=== PATIENT | female | born 1965 | race Caucasian/White ===

== ENCOUNTER → 2017-11-13 | Outpatient (CLI) | payer OTHER ==
[2017-11-13 10:16] LABS: ALT 36 U/L (9-52); AST 20 U/L (14-36); Alkaline Phosphatase 62 U/L (38-126); Anion Gap 7 mmol/L; Blood Urea Nitrogen 11 mg/dL (7-17); Calcium 9.4 mg/dL (8.4-10.2); Carbon Dioxide 28 mmol/L (22-30); Chloride 104 mmol/L (98-107); Glucose 108 mg/dL (74-99); Non-African American GFR(MDRD) >60 (>60 ml/min/1.73 sqM); Potassium 4.2 mmol/L (3.5-5.1); Sodium 139 mmol/L (137-145); Total Bilirubin 0.3 mg/dL (0.2-1.3); Total Protein 6.7 g/dL (6.3-8.2)
== END | disposition home or self-care (01) ==
LOC: LABWHC1 09:02
PROVIDERS: ATTEND Internal Medicine Interventional Cardiology
DX: R00.2 Palpitations (principal)
CPT/HCPCS: 36415; 80053; 84443

== ENCOUNTER → 2017-12-09 | Outpatient (CLI) | payer OTHER ==
--- NOTE | 2017-12-11 07:14 | MM ---
Reason for exam: screening (asymptomatic). Last mammogram was performed 2 years and 1 month ago. Physical Findings: A clinical breast exam by your physician is recommended on an annual basis and results should be correlated with mammographic findings. MG Screening Mammo w CAD Bilateral CC and MLO view(s) were taken. Prior study comparison: October 31, 2015, bilateral MG screening mammo w CAD. July 17, 2014, bilateral MG screening mammo w CAD. The breast tissue is heterogeneously dense. This may lower the sensitivity of mammography. Increasing nodularity in the left breast middle position. ASSESSMENT: Incomplete: need additional imaging evaluation, BI-RAD 0 RECOMMENDATION: Special view mammogram of the left breast. If lesion persists on supplemental views, image directed ultrasound is recommended. [facility] will attempt to contact patient to return for supplemental views and ultrasound if indicated.
== END | disposition home or self-care (01) ==
LOC: RADMAMWWP 11:36
PROVIDERS: ATTEND Family Medicine
DX: Z12.31 Encounter for screening mammogram for malignant neoplasm of breast (principal)
CPT/HCPCS: 77067

== ENCOUNTER 2017-12-11 08:45 | Day surgery (SDC) | payer OTHER ==
[2017-12-09 10:47] VITALS: BMI 32.8
[~2017-12-11 08:45] MED LIST: LACTATED RINGERS 1,000 ML IV SCH; ONDANSETRON 4 MG/2 ML VIAL IVP PRN
[2017-12-11 09:12] VITALS: RESP 16; TEMP 98.5
[2017-12-11] MEDS ORDERED: PROPOFOL 10 MG/ML 20 ML VIAL IV ONE (09:46)
--- NOTE | 2017-12-11 10:13 | P.PCN ---
Date of Procedure: 12/11/17 Procedure(s) Performed: BRIEF HISTORY: Patient is a 52-year-old pleasant white female, scheduled for an elective colonoscopy as a part of screening for colon neoplasia. PROCEDURE PERFORMED: Colonoscopy. PREOPERATIVE DIAGNOSIS: Screening for colon cancer. IV sedation per Anesthesia. PROCEDURE: After informed consent was obtained, the patient, was brought into the endoscopy unit. IV sedation was administered by Anesthesia under continuous monitoring. Digital rectal examination was normal. Initially the Olympus CF- 160 flexible video colonoscope was then inserted in the rectum, gradually advanced into the cecum without any difficulty. Careful examination was performed as the scope was gradually being withdrawn. Ileocecal valve and the appendiceal orifice were visualized and appeared normal. Prep was excellent. Mucosa of the cecum, ascending colon, transverse colon, descending colon, sigmoid colon, and rectum appeared normal. Scattered sigmoidal necrosis seen. Retroflexion was performed in the rectum and no lesions were seen. The patient tolerated the procedure well. IMPRESSION: Normal-appearing colon from rectum to cecum With no evidence of colorectal neoplasia. Scattered sigmoid diverticulosis. RECOMMENDATIONS: Findings of this examination were discussed with the patient as well as her family. She was advised to have a repeat screening colonoscopy in 10 years..
[2017-12-11 10:35] VITALS: PULSE 66
[2017-12-11 11:03] VITALS: BP 116/71
== END 2017-12-11 11:21 | disposition home or self-care (01) ==
LOC: ORWHC2ENDO 08:45
PROVIDERS: ATTEND Internal Medicine Gastroenterology
DX: Z12.11 Encounter for screening for malignant neoplasm of colon (principal); K57.30 Diverticulosis of large intestine without perforation or abscess without bleeding; K55.049 Acute infarction of large intestine, extent unspecified; F17.210 Nicotine dependence, cigarettes, uncomplicated; Z79.1 Long term (current) use of non-steroidal anti-inflammatories (NSAID)
CPT/HCPCS: 81025; J2704; G0121

== ENCOUNTER → 2017-12-15 | Outpatient (CLI) | payer OTHER ==
--- NOTE | 2017-12-15 11:32 | MM ---
Reason for exam: additional evaluation requested from abnormal screening. Last mammogram was performed less than 1 month ago. Physical Findings: Nurse Summary: 0.5cm nodule in the left breast at 12/3 o'clock, questionable cluster at 3 o'clock (nurse kp). MG Work Up Mamm w CAD LT Spot compression CC, spot compression MLO, and LM view(s) were taken of the left breast. Prior study comparison: December 09, 2017, bilateral MG screening mammo w CAD. October 31, 2015, bilateral MG screening mammo w CAD. Nodularity in the left breast persists. Ultrasound is recommended. These results were verbally communicated with the patient and result sheet given to the patient on 12/15/17. ASSESSMENT: Incomplete: need additional imaging evaluation, BI-RAD 0 RECOMMENDATION: Ultrasound of the left breast. Manage patient on a clinical basis.
--- NOTE | 2017-12-15 11:33 | USB ---
Reason for exam: additional evaluation requested from abnormal screening. US Breast Workup LT Left breast ultrasound includes all four quadrants, the retroareolar region and axilla. Finding demonstrates no cystic or solid lesion seen. These results were verbally communicated with the patient and result sheet given to the patient on 12/15/17. ASSESSMENT: Negative, BI-RAD 1 RECOMMENDATION: Return to routine screening mammogram schedule for both breasts. Manage patient on a clinical basis.
== END | disposition home or self-care (01) ==
LOC: RADMAMWWP 10:19
PROVIDERS: ATTEND Family Medicine
DX: R92.8 Other abnormal and inconclusive findings on diagnostic imaging of breast (principal)
CPT/HCPCS: 77065

== ENCOUNTER → 2018-06-29 | Outpatient (CLI) | payer OTHER ==
--- NOTE | 2018-06-29 15:49 | US ---
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 Lump posterior/medial right knee for years, g etting larger Isoechoic/hypoechoic area right posterior/medial knee at area of lump = 7.1 x 3.9 x 6.0cm, possible l ipoma IMPRESSION: 1. Isoechoic structure within the posterior knee. Lipoma could be considered. Liposarcoma is not excl uded. Recommend MRI with contrast for additional evaluation.
== END | disposition home or self-care (01) ==
LOC: RADUSWWP 10:29
PROVIDERS: ATTEND Orthopaedic Surgery
DX: D17.9 Benign lipomatous neoplasm, unspecified (principal); M17.12 Unilateral primary osteoarthritis, left knee

== ENCOUNTER → 2019-04-12 | Outpatient (CLI) | payer OTHER ==
[2019-04-12 15:27] LABS: HGB 14.8 gm/dL (11.4-16.0); MCH 28.5 pg (25.0-35.0); MCHC 32.2 g/dL (31.0-37.0); MCV 88.5 fL (80.0-100.0); Mean Platelet Volume 8.1; Platelet Count 245 k/uL (150-450); RDW 13.7 % (11.5-15.5)
[2019-04-12 15:33] LABS: INR 0.9 (<1.2); Partial Thromboplastin Time 23.3 sec (22.0-30.0); Prothrombin Time 9.6 sec (9.0-12.0)
[2019-04-12 15:47] LABS: ALT 35 U/L (9-52); AST 29 U/L (14-36); Albumin 4.7 g/dL (3.5-5.0); Alkaline Phosphatase 80 U/L (38-126); Anion Gap 2 mmol/L; Blood Urea Nitrogen 13 mg/dL (7-17); Calcium 10.1 mg/dL (8.4-10.2); Carbon Dioxide 27 mmol/L (22-30); Chloride 106 mmol/L (98-107); Glucose 89 mg/dL (74-99); Potassium 4.5 mmol/L (3.5-5.1); Sodium 135 mmol/L (137-145); Total Bilirubin 0.3 mg/dL (0.2-1.3); Total Protein 7.7 g/dL (6.3-8.2)
[2019-04-12 16:08] LABS: Appearance,Urine Clear (Clear); Bilirubin,Urine Negative (Negative); Blood,Urine Negative (Negative); Color,Urine Yellow; Glucose,Urine (UA) Negative (Negative); Ketones,Urine Negative (Negative); Leukocyte Esterase,Urine Negative (Negative); Nitrite,Urine Negative (Negative); PH, Urine 5.5 (5.0-8.0); Protein,Urine Negative (Negative); Specific Gravity,Urine 1.024 (1.001-1.035); Urobilinogen,Urine <2.0 mg/dL (<2.0)
== END | disposition home or self-care (01) ==
LOC: LABPAT 14:14
PROVIDERS: ATTEND Orthopaedic Surgery
DX: Z01.818 Encounter for other preprocedural examination (principal); Z01.812 Encounter for preprocedural laboratory examination
CPT/HCPCS: 80053; 81003; 85027; 85610; 85730; 87070; 93005

== ENCOUNTER 2019-04-20 09:31 | Inpatient (IN) | payer OTHER ==
[~2019-04-20 09:31] MED LIST changes: +ACETAMINOPHEN TAB 500 MG TAB PO ONE; +DEXAMETHASONE SOD PHOSPHATE 10 MG/ML 1 ML VIAL IV ONE; +HYDROmorphone 0.5 MG/0.5 ML SYRINGE IVP PRN; +LIDOCAINE 1% 20 ML VIAL (10MG/ML) FOR IV START INTRADERMA PRN; +MELOXICAM 7.5 MG TAB PO ONE; +ONDANSETRON 4 MG/2 ML VIAL IVP ONE; +TRANEXAMIC ACID 1,000 MG in SODIUM CHLORIDE 0.9% 100 ML IVPB ONE; +ceFAZolin IN SWFI 2 GM/20 ML SYRINGE IVP ONE
[2019-04-20] MEDS ORDERED: MIDAZOLAM (PF) 2 MG/2 ML VIAL IVP ONE (10:49)
[2019-04-20] MEDS ORDERED: fentaNYL (PF) 50 MCG/ML 2 ML AMP IVP ONE (10:49)
[2019-04-20] MEDS ORDERED: MIDAZOLAM 2 MG/2 ML VIAL ONE (12:04)
[2019-04-20] MEDS ORDERED: SODIUM CHLORIDE 0.9% 100 ML BAG ONE (12:04)
[2019-04-20] MEDS ORDERED: fentaNYL (PF) 50 MCG/ML 2 ML AMP ONE (12:04)
[2019-04-20] MEDS ORDERED: PROPOFOL 10 MG/ML 20 ML VIAL IV ONE (12:04)
[2019-04-20] MEDS ORDERED: TRANEXAMIC ACID 1,000 MG/10 ML VIAL ONE (12:04)
[2019-04-20] MEDS ORDERED: MAGNESIUM HYDROXIDE 2,400 MG/10 ML CUP PO PRN (12:33)
[2019-04-20] MEDS ORDERED: ONDANSETRON 4 MG/2 ML VIAL IVP PRN (12:33)
[2019-04-20] MEDS ORDERED: HYDROmorphone 0.5 MG/0.5 ML SYRINGE IVP PRN ×2 (12:33)
[2019-04-20] MEDS ORDERED: hydrOXYzine PAMOATE 25 MG CAP PO PRN (12:33)
[2019-04-20] MEDS ORDERED: NA PHOS,M-B/NA PHOS,DI-BA 133 ML ENEMA RECTAL PRN (12:33)
[2019-04-20] MEDS ORDERED: HYDROmorphone 1 MG/ML 1 ML SYRINGE IVP PRN (12:33)
[2019-04-20] MEDS ORDERED: HYDROcodone/APAP 5-325MG 1 EACH TAB PO PRN (12:33)
[2019-04-20] MEDS ORDERED: BISACODYL 10 MG SUPP RECTAL PRN (12:33)
[2019-04-20] MEDS ORDERED: NALOXONE 0.4 MG/ML 1 ML VIAL IV PRN (12:33)
[2019-04-20] MEDS ORDERED: LACTATED RINGERS 1,000 ML IV ONE (12:35)
[2019-04-20] MEDS: ROPIVACAINE 246.25 MG, EPINEPHrine 0.5 MG, KETOROLAC 30 MG, WATER FOR INJECTION,STERILE... MISCELLANE ONE ×8 (13:01→13:25)
[2019-04-20] MEDS ORDERED: ceFAZolin 3,000 MG in SODIUM CHLORIDE 0.9% IRRIGATIO 3,000 ML IRRIGATION ONE (13:01)
[2019-04-20 14:50] VITALS: RESP 16
[2019-04-20] MEDS ORDERED: ROPIVACAINE 1,100 MG, SODIUM CHLORIDE 0.9% 500 ML 330 ML MISCELLANE PRN ×2 (14:59)
--- NOTE | 2019-04-20 15:08 | XR ---
EXAMINATION TYPE: XR knee limited LT DATE OF EXAM: 04/20/2019 CLINICAL HISTORY: Postoperative evaluation Two views of the left knee are submitted. Identified are changes of total knee arthroplasty with fem oral and tibial components appearing well seated. Postsurgical soft tissue changes are noted. Align ment is anatomic.
[2019-04-20 17:23] VITALS: BMI 34.0
[2019-04-20] MEDS: KETOROLAC 30 MG/ML 1 ML VIAL IVP SCH ×4 (17:52→23:17)
[2019-04-20] MEDS: NICOTINE 21MG/24HR PATCH TRANSDERM SCH (17:56)
[2019-04-20] MEDS: HYDROcodone/APAP 5-325MG 1 EACH TAB PO PRN (19:16)
[2019-04-20] MEDS: LACTATED RINGERS 1,000 ML IV SCH ×2 (19:18→20:12)
[2019-04-20] MEDS: ceFAZolin IN SWFI 2 GM/20 ML SYRINGE IVP SCH (20:13)
[2019-04-20] MEDS ORDERED: SENNOSIDES-DOCUSATE SODIUM 1 EACH TAB PO SCH (21:00)
[2019-04-20] MEDS ORDERED: TEMAZEPAM 15 MG CAP PO PRN (22:00)
[2019-04-21] MEDS: HYDROcodone/APAP 5-325MG 1 EACH TAB PO PRN ×2 (00:46→09:14)
[2019-04-21 01:44] VITALS: PULSE 83
[2019-04-21] MEDS: KETOROLAC 30 MG/ML 1 ML VIAL IVP SCH (04:51)
[2019-04-21] MEDS: ceFAZolin IN SWFI 2 GM/20 ML SYRINGE IVP SCH (04:51)
[2019-04-21 07:43] VITALS: BP 103/64; TEMP 98.4
--- NOTE | 2019-04-21 08:10 | P.OP ---
Date of Procedure: 04/20/19 Procedure(s) Performed: PREOPERATIVE DIAGNOSIS: Left knee severe osteoarthritis with genu varum POSTOPERATIVE DIAGNOSIS: Left knee severe osteoarthritis with genu varum OPERATION: Left knee cemented total replacement arthroplasty. ANESTHESIA: Spinal ESTIMATED BLOOD LOSS: 100 ml. BIG DATA DEVELOPER: Alpa Oscar PA-C (assistance with: patient positioning, retraction, exposure, hemostasis, leg positioning, implantation, irrigation, closure, dressing) COMPLICATIONS: None apparent. COMPONENTS IMPLANTED: Persona system from [employer] INDICATIONS: Carrie is a 54 year old female with a history of left knee osteoarthritis. Conservative treatment has been tried and has been unsuccessful in controlling symptoms adequately. The operation of knee replacement has been discussed at length in the office, as well as potential risks and complications. These are inclusive of, but not limited to: bleeding, infection, scarring, discomfort, blood vessel and nerve damage, need for further surgery, failure to relieve symptoms, persistence, recurrence, or worsening of problems, loosening, dislocation, wear, blood clot, pulmonary embolism, , gait dysfunction, stiffness, and other risks as discussed in the office. The patient elects to proceed and the consent form has been signed. PROCEDURE: The patient was taken to the operating room and positioned on the operating room table in the supine position. Anesthesia was initiated. Care was taken to make sure that all pressure points were adequately padded. The operative lower extremity was prepped and draped in the usual aseptic fashion using ChloraPrep. Ioban drape was used for the case and the patient received intravenous antibiotics within one hour of the incision. A pneumotourniquet and leg kim were used for the case. The limb was exsanguinated with an Esmarch bandage and the tourniquet was inflated to 350 mmHg. Time-out was called confirming the patient's identity, side, procedure and administration of antibiotics and tranexamic acid, 1 g IV. The incision was then created midline directly over the knee, carried down through skin and into the subcutaneous tissues and down to fascia. Full thickness subcutaneous medial flap was developed. Medial parapatellar arthrotomy was performed and the interior of the knee was inspected. There was end-stage osteoarthritis of the knee with a mild to moderate genu varum type deformity. The fat pad was excised and proximal medial release on the tibia was completed using meticulous dissection and a curved osteotome. The anterior cruciate ligament was taken down. Note was made of significant attrition of the anterior and significant degenerative appearance of the posterior cruciate ligaments. The exposure was excellent. The knee was flexed 90 degrees and the patella was everted. A spot was chosen on the femur approximately 1 cm anterior to the posterior cruciate ligament insertion and an intramedullary hole was created within the femur. The intramedullary guide was then set to 5 degrees of valgus. The distal cutting block was attached and pinned into position. An appropriate amount of distal femoral resection was set. The oscillating saw was then used to make the distal femoral cut. This cut was confirmed to be flat with the flat end of an osteotome. The retractors were placed around the tibia and the tibial surface was addressed. The angle and depth of resection was adjusted using an extramedullary cutting guide. The guide had a built-in 3 degree posterior slope cut. Once the cutting guide was adjusted appropriately and in line with the axis of the tibia and confirmed to be in good position in relation to the second metatarsal and transmalleolar axis, the tibial cut was then created with protection of the posterior neurovascular structures and the collateral ligaments. The tibial cut surface was removed and sized. Assessment of the extension gap was performed using spacer blocks. Medial releases were performed as necessary to achieve a rectangular space in extension. Femoral sizing was then accomplished using anterior referencing. Care was taken to analyze the posterior condyles for signs of deficiency or severe wear, and adjustments to the guide were made, as appropriate. 3 degree external rotation pins were placed. The cutting jig for the femur was applied to these pins. The planned cuts were further analyzed prior to performing them with the oscillating saw. No femoral notching was produced. Bone fragments were removed and the cut surfaces were finished, as necessary, with a reciprocating saw. Spacer blocks were then used to confirm that the flexion and extension gaps were equal. Soft tissue releases and adjustment of the tibial and/or femoral cuts were made, as necessary, until the gaps were equal. This included release of the posterior cruciate ligament, which was tight in this patient. The femur was then further finished for a posterior cruciate ligament substituting component. Patellar resurfacing was performed using a reamer. The size of the required patellar component was estimated and the patellar surface was then reamed down to a residual thickness which would recreate the [place] thickness with the component. The exact placement of the patellar component was adjusted for position based on preoperative x-rays and intraoperative findings. Prior to placing trial components, anesthetic solution consisting of ropivicaine with epinephrine, ketorolac, and clonidine was injected carefully and meth odically in a grid pattern using aspiration technique into the soft tissue around the knee circumferentially, starting with the deeper tissues first and progressing to fascia, and then finally the skin/subcutaneous tissue. Particular care was taken when injecting the posterior capsule. The trial components were inserted. The tibial tray was allowed to self center and the patella was noted to track very well. The position of the tibial component was marked and the tibia was then finished for a stemmed tibial component. Cement was mixed on the back table and applied to the final components. Trial components were removed and the cut surfaces of the bone were pulse lavaged thoroughly and dried. Cement was then applied to the tibial surface and pressurized into the surface using finger pressurization technique. The tibial component was then applied and excess cement was removed after it was impacted securely and noted to be flush with the cut surface. In similar fashion, the cement was applied to the cut femoral surface, pressurized in using finger pressurization and the component was impacted into place. Excess cement was removed. The polyethylene spacer was then implanted and locked into position. The patellar component was then applied in similar technique and a patellar clamp was used to hold the patella in place as the cement hardened. Once the cement had fully hardened, the knee was reinspected. Any other cement extrusion was removed and final kinematic testing showed range of motion from 0 to 130 degrees with excellent stability, both medially and laterally and appropriate alignment of the leg. Patellar tracking was excellent. The knee was then thoroughly pulse lavaged with normal saline. The tourniquet was deflated and hemostasis was obtained with electrocautery and IV tranexamic acid, 1 g given prior to inflation of the tourniquet and another gram given at the time of closure. Closure was with #2 Ethibond in the fascia and supplemented with #2 Quill, 2-0 Vicryl suture was used for the subcutaneous tissues and 3-0 Quill for the skin. Dermabond/Steri-Strips were then applied. A lightly compressive dressing was applied using Webril and an Zachery wrap. The patient was then transferred to stretcher and taken to the recovery room in stable condition. Sponge and needle counts were correct.
--- NOTE | 2019-04-21 08:43 | P.DS ---
Providers Date of admission: 04/20/19 09:31 Attending physician: Jigar Waters Consults: 04/20/19 12:33 Consult Physician Routine Consulting Provider: Dillon Heredia Consult Reason/Comments: Medical management Do you want consulting provider notified?: Yes Primary care physician: Jasson Jaimes - Discharge Diagnosis(es) (1) Primary localized osteoarthritis of left knee Current Visit: Yes Status: Acute (2) Status post total left knee replacement Current Visit: Yes Status: Acute Hospital Course: This is a 54-year-old female who was last seen with complaint of continued left knee pain. The patient has a known history of degenerative arthritis of the left knee and presents to discuss surgical options. After discussion and consideration the patient elects to proceed with total left knee arthroplasty. The patient is seen preoperatively by her primary care physician and cleared for surgery. The patient is admitted to [facility] for total left knee arthroplasty. The procedures performed without complication or sequelae. He is doing well postoperatively. Vital signs are stable at discharge. Labs are stable at discharge. the patient is ambulating well with walker with minimal assistance. The patient is discharged to home on postop day #1 pending medical clearance. Please see orders and refer to the med rec for accurate list of medications. Plan - Discharge Summary Discharge Rx Participant: Yes New Discharge Prescriptions: New Aspirin [Adult Low Dose Aspirin EC] 81 mg PO DAILY #1 tablet. HYDROcodone/APAP 5-325MG [[place] 5-325] 1 - 2 each PO Q4-6H PRN #50 tab PRN Reason: Pain Sennosides-Docusate Sodium [Senokot-S] 1 tab PO BID #60 tablet Rivaroxaban [Xarelto] 10 mg PO DAILY #5 tab No Action Ibuprofen 800 mg PO Q8H PRN PRN Reason: Pain Multivitamin [Multivitamins Adult Gummies] 1 tab PO DAILY [phone] [Excedrin] 1 tab PO ONCE PRN PRN Reason: Headache Discharge Medication List Ibuprofen 800 mg PO Q8H PRN 12/09/17 [History] [id number]-[id number] [phone] [Excedrin] 1 tab PO ONCE PRN 04/14/19 [History] Multivitamin [Multivitamins Adult Gummies] 1 tab PO DAILY 04/14/19 [History] Aspirin [Adult Low Dose Aspirin EC] 81 mg PO DAILY #1 tablet. 04/20/19 [Rx] HYDROcodone/APAP 5-325MG [[place] 5-325] 1 - 2 each PO Q4-6H PRN #50 tab 04/20/19 [Rx] Rivaroxaban [Xarelto] 10 mg PO DAILY #5 tab 04/20/19 [Rx] Sennosides-Docusate Sodium [Senokot-S] 1 tab PO BID #60 tablet 04/20/19 [Rx] Follow up Appointment(s)/Referral(s): Alpa Oscar, PAC [PHYSICIAN DEHYDRATOR] - 2 Weeks Ambulatory/Diagnostic Orders: Continuous Passive Motion (CPM) Machine [DME.AMB1] Time Frame: 3 Weeks, Fa cility: Yomaira Latif, Location: Case Management Activity/Diet/Wound Care/Special Instructions: May bear wt as tolerated w walker. May shower if no drainage from incision. CPM 5-6h daily. Discharge Disposition: HOME WITH HOME HEALTH SERVICES
[2019-04-21] MEDS ORDERED: RIVAROXABAN 10 MG TAB PO SCH (09:00)
[2019-04-21] MEDS ORDERED: MELOXICAM 7.5 MG TAB PO SCH (09:00)
[2019-04-21 09:13] LABS: Basophils % (A) 0 %; Eosinophils # (A) 0.1 k/uL (0-0.7); Eosinophils % (A) 0 %; HCT 35.2 % (34.0-46.0); HGB 11.2 gm/dL (11.4-16.0); Lymphocytes % (A) 12 %; MCH 27.6 pg (25.0-35.0); MCHC 31.9 g/dL (31.0-37.0); MCV 86.5 fL (80.0-100.0); Mean Platelet Volume 7.9; Monocytes # (A) 0.6 k/uL (0-1.0); Monocytes % (A) 4 %; Neutrophils # (A) 13.3 k/uL (1.3-7.7); Neutrophils % (A) 83 %; Platelet Count 207 k/uL (150-450); RBC 4.06 m/uL (3.80-5.40); RDW 13.8 % (11.5-15.5)
[2019-04-21] MEDS: NICOTINE 21MG/24HR PATCH TRANSDERM SCH (09:14)
[2019-04-21] MEDS ORDERED: BISMUTH SUBSALICYLATE 4,192 MG/240 ML BOTTLE PO PRN (09:29)
--- NOTE | 2019-04-21 11:54 | P.PN ---
Progress Note - Text Anesthesia POD 1. Patient is status post left TKR under spinal anesthesia with a left adductor canal catheter placed for postoperative pain relief. With ropivacaine 0.2% running at 8 cc's per hour, the patient's VAS is (1, 4). Catheter site is clean dry and intact.
--- NOTE | 2019-04-21 21:05 | CONS ---
CONSULTATION DATE OF CONSULTATION: 04/21/2019 REASON FOR CONSULTATION: Medical management requested by Dr. Waters. CONSULTATION: This is a 54-year-old patient of Dr. Jaimes. Chronic stable medical conditions include osteoarthritis of the shoulder, irritable bowel syndrome, seborrheic dermatitis. The patient has undergone left total knee arthroplasty. Pain is controlled. No nausea, vomiting, did tolerate a diet. Did work with therapy. Doing better today. Has been out of bed. REVIEW OF SYSTEMS: CONSTITUTIONAL: None. HEENT none. RESPIRATORY: None. CARDIOVASCULAR: None. GASTROINTESTINAL: None. GENITOURINARY: Occasional incontinence. DERMATOLOGICAL: Seborrheic dermatitis. As above. PSYCHIATRY: None. NEUROLOGICAL: None. MUSCULOSKELETAL: Arthritic pain in the right shoulder. PAST MEDICAL HISTORY: Right shoulder osteoarthritis, irritable bowel syndrome. Seborrheic dermatitis, urine incontinence. PAST SURGICAL HISTORY: Right knee replacement, lump removed behind the right knee, tonsillectomy. SOCIAL HISTORY: Smokes a pack a day. Lives with a boyfriend. Works as a quality head at a factory. No alcohol. FAMILY HISTORY: DVT. HOME MEDICATIONS: Full list not available. ALLERGIES: NICKEL. PHYSICAL EXAMINATION: VITAL SIGNS: Temperature 98.4. heart rate 83, respirations 16, blood pressure 103/64, pulse ox 97% on room air. GENERAL APPEARANCE: Average, well-built. BMI 34.2, sitting up awake. EYES: Pupils equal. Conjunctivae normal. HEENT: External appearance of nose and ears normal. Oral cavity normal. NECK JVD not raised. Mass not palpable. RESPIRATORY: Effort normal. LUNGS: Fair air entry. CARDIOVASCULAR: First and second sounds no edema. ABDOMEN: Soft, nontender. Liver and spleen not palpable. LYMPHATIC: No lymph nodes palpable in the neck and axilla. PSYCHIATRY: Alert and oriented x3. Mood and affect normal. NEUROLOGICAL: Pupils equal. Cranial nerves grossly intact. Power and sensation grossly intact. MUSCULOSKELETAL: Incision on the left knee healing well. INVESTIGATIONS: White count 16, hemoglobin 11.2. The patient's hemoglobin was 14.8 on 04/12/2019. ASSESSMENT: 1. Left total knee arthroplasty. 2. Acute postoperative blood loss anemia expected from surgery. 3. Leukocytosis likely reactive from surgery. No clinical evidence of infection. 4. Osteoarthritis of the right shoulder. 5. Irritable bowel syndrome. 6. Seborrheic dermatitis. 7. Obesity; BMI 34.2. 8. Chronic nicotine dependence. The patient is a cigarette smoker. PLAN: Care was discussed with the patient. He has been put on Xarelto for DVT prophylaxis. The patient is also being put on iron supplementation. The patient should follow up with Dr. Jaimes upon discharge. Thank you Dr. Waters. Smoking cessation counseling: This was discussed with the patient. Nicotine patch has been given. More than 3 minutes was spent on this aspect of the case. Copy to Dr. Jaimes. ELSY / HAWKN: [id number] /
== END 2019-04-21 13:48 | disposition home health service (06) | DRG 470 ==
LOC: 2ORMAIN 09:31 → EDSTATUS 13:00 → 4SSUR 14:44
PROVIDERS: ADMIT Orthopaedic Surgery; ATTEND Orthopaedic Surgery
PROC: 0SRD0J9 Replacement of Left Knee Joint with Synthetic Substitute, Cemented, Open Approach (ICD-10-PCS; principal; 2019-04-20 13:00)
DX: M17.12 Unilateral primary osteoarthritis, left knee (principal); D62 Acute posthemorrhagic anemia; D72.829 Elevated white blood cell count, unspecified; E66.9 Obesity, unspecified; F17.210 Nicotine dependence, cigarettes, uncomplicated; K58.9 Irritable bowel syndrome, unspecified; L21.9 Seborrheic dermatitis, unspecified; M19.011 Primary osteoarthritis, right shoulder; M21.169 Varus deformity, not elsewhere classified, unspecified knee; Z68.34 Body mass index [BMI] 34.0-34.9, adult; Z96.651 Presence of right artificial knee joint; Z79.899 Other long term (current) drug therapy; Z82.49 Family history of ischemic heart disease and other diseases of the circulatory system; Z80.1 Family history of malignant neoplasm of trachea, bronchus and lung; Z82.0 Family history of epilepsy and other diseases of the nervous system
CPT/HCPCS: 81025; 85025; 88300

== ENCOUNTER → 2022-08-30 | Outpatient (CLI) | payer BC ==
--- NOTE | 2022-08-30 10:59 | XR ---
Right hip. HISTORY: Pain. COMPARISON: None. TECHNIQUE: 2 views the right hip were obtained. FINDINGS: There is mild narrowing of the right hip joint with hypertrophic spurring of the femoral head indicat ing moderate degenerative arthritis. There is no fracture or dislocation. No focal intraosseous abnor malities are seen. IMPRESSION: 1. No acute trauma including no fracture or dislocation. 2. Moderate degenerative changes of hip joint.
[2022-08-30 16:32] LABS: Basophils # (A) 0.02 X 10*3/uL (0.00-0.10); Basophils % (A) 0.3 %; Eosinophils # (A) 0.07 X 10*3/uL (0.04-0.35); Eosinophils % (A) 0.9 %; HCT 43.8 % (37.2-46.3); HGB 14.4 g/dL (12.0-15.0); Immature Grans, Automated 0.3 %; Lymphocytes # (A) 2.17 X 10*3/uL (0.90-5.00); Lymphocytes % (A) 27.3 %; MCH 28.6 pg (27.0-32.0); MCHC 32.9 g/dL (32.0-37.0); MCV 86.9 fL (80.0-97.0); Mean Platelet Volume 12.1 fL (9.5-12.2); Monocytes # (A) 0.52 X 10*3/uL (0.20-1.00); Monocytes % (A) 6.5 %; NRBC Per 100 WBC 0 /100 WBCS (0.0-0.0); Neutrophils # (A) 5.16 X 10*3/uL (1.80-7.70); Neutrophils % (A) 64.7 %; Platelet Count 271 X 10*3/uL (140-440); RBC 5.04 X 10*6/uL (4.10-5.20); RDW 13.4 % (11.5-14.5); WBC 7.96 X 10*3/uL (4.50-10.00)
[2022-08-30 17:02] LABS: ALT 22 U/L (8-44); AST 20 U/L (13-35); African American GFR (CKD) 90.3 (60.0-200.0); Albumin 4.4 g/dL (3.8-4.9); Albumin/Globulin Ratio 1.74 (1.60-3.17); Alkaline Phosphatase 115 U/L (41-126); Calcium 9.7 mg/dL (8.7-10.3); Carbon Dioxide 28.5 mmol/L (20.0-27.5); Chloride 106 mmol/L (96-109); Chol/HDL Ratio 4.17 Ratio; Globulin 2.5 g/dL (1.6-3.3); Glucose 97 mg/dL (70-110); LDL Cholesterol,Calculated 141.9 mg/dL (0.0-131.0); Non-African American GFR(CKD) 77.9 (60.0-200.0); Potassium 4.7 mmol/L (3.5-5.5); Sodium 142 mmol/L (135-145); Total Protein 6.9 g/dL (6.2-8.2)
== END | disposition home or self-care (01) ==
LOC: LABWHC1 10:22
PROVIDERS: ATTEND Family Medicine
DX: Z00.00 Encounter for general adult medical examination without abnormal findings (principal); R53.83 Other fatigue; M25.551 Pain in right hip; M16.11 Unilateral primary osteoarthritis, right hip; N64.4 Mastodynia
CPT/HCPCS: 36415; 73502; 80053; 80061; 84439; 84443; 85025

== ENCOUNTER → 2022-09-01 | Outpatient (CLI) | payer BC ==
--- NOTE | 2022-09-02 20:37 | MM ---
Reason for Exam: Screening (asymptomatic). Last mammogram was performed 4 year(s) and 9 month(s) ago. Patient History: Menarche at age 11. First Full-Term at age 20. Postmenopausal. Risk Values: Xochitl 5 year model risk: 1.0%. NCI Lifetime model risk: 6.4%. Prior Study Comparison: 10/31/2015 Bilateral Screening Mammogram, [facility]. 12/09/2017 Bilateral Screening Mammogram, [facility]. 12/15/2017 Left Diagnostic Mammogram, [facility]. Tissue Density: There are scattered fibroglandular densities. Findings: Analyzed By CAD. There is chronic bilateral nodularity. This becomes more apparent on the 3-D images. No significant change from prior exams. Overall Assessment: Benign, BI-RAD 2 Management: Screening Mammogram of both breasts in 1 year. 1. Patient should continue monthly self breast exams. 2. A clinical breast exam by your physician is recommended on an annual basis. 3. This exam should not preclude additional follow-up of suspicious palpable abnormalities. Electronically signed and approved by: Juan Briscoe M.D. Radiologist
== END | disposition home or self-care (01) ==
LOC: RADMAMWWP 16:14
PROVIDERS: ATTEND Family Medicine
DX: Z12.31 Encounter for screening mammogram for malignant neoplasm of breast (principal)
CPT/HCPCS: 77063; 77067

== ENCOUNTER 2023-06-08 15:19 | Inpatient (IN) | payer BC ==
[2023-06-08] MEDS ORDERED: ASPIRIN 81 MG PO STA (15:53)
[2023-06-08] MEDS ORDERED: NITROGLYCERIN OINT 1 INCH/GM PACKET TOPICAL STA (15:53)
--- NOTE | 2023-06-08 16:03 | ED ---
General Adult HPI - General Chief complaint: Chest Pain Stated complaint: shoulder pain, chest pain Time Seen by Provider: 06/08/23 15:30 Source: patient, RN notes reviewed, old records reviewed Limitations: no limitations - History of Present Illness Initial comments: This is a 58-year-old female presents emergency Department complaining of chest pain and left shoulder pain. Patient states the shoulder pain is been ongoing for about 5 days. Patient states hurts to move but she can move through the full range of motion. She states that this morning in addition to his shoulder pain she started having central chest pain that lasted about 2 hours. Patient states he was very achy in nature and it made her very nauseated. Patient denied abdominal pain patient denied any vomiting or diarrhea. Patient denies any fever chills or cough. Patient states the pain did not seem to be associated to her left shoulder pain. Patient states she works very repetitive job and she thinks she may have injured the shoulder and chest pain is something new as of this morning. Patient states she is a smoker she has a strong family history of heart disease. - Related Data Home Medications Medication Instructions Recorded Confirmed Ibuprofen [Motrin] 800 mg PO TID-W/MEALS PRN 06/08/23 06/08/23 Allergies Allergy/AdvReac Type Severity Reaction Status Date / Time nickel Allergy Rash/Hives/ Verified 06/08/23 16:31 itching gluten AdvReac Nausea & Verified 06/08/23 16:31 Vomiting & Diarrhea lactase [From Dairy Aid] AdvReac Nausea & Verified 06/08/23 16:31 Vomiting & Diarrhea Review of Systems ROS Statement: Those systems with pertinent positive or pertinent negative responses have been documented in the HPI. ROS Other: All systems not noted in ROS Statement are negative. Past Medical History Past Medical History: Osteoarthritis (OA), Skin Disorder Additional Past Medical History / Comment(s): hx migraines, hx heart murmer, palpitations with stress, IBS, seborrheic dermatitis, premature age spots History of Any Multi-Drug Resistant Organisms: None Reported Past Surgical History: Joint Replacement, Tonsillectomy Additional Past Surgical History / Comment(s): rt knee replacement Past Anesthesia/Blood Transfusion Reactions: No Reported Reaction Past Psychological History: Anxiety Smoking Status: Current every day smoker Past Alcohol Use History: None Reported Past Drug Use History: None Reported - Past Family History Mother Family Medical History: Cancer, Deep Vein Thrombosis (DVT) General Exam - General Exam Comments Initial Comments: GENERAL: Patient is well-developed and well-nourished. Patient is nontoxic and well- hydrated and is in mild distress. ENT: Neck is soft and supple. No significant lymphadenopathy is noted. Oropharynx is clear. Moist mucous membranes. Neck has full range of motion without eliciting any pain. EYES: The sclera were anicteric and conjunctiva were pink and moist. Extraocular movements were intact and pupils were equal round and reactive to light. Eyelids were unremarkable. PULMONARY: Unlabored respirations. Good breath sounds bilaterally. No audible rales rhonchi or wheezing was noted. CARDIOVASCULAR: There is a regular rate and rhythm without any murmurs gallops or rubs. No reproducible chest pain ABDOMEN: Soft and nontender with normal bowel sounds. SKIN: Skin is clear with no lesions or rashes and otherwise unremarkable. NEUROLOGIC: Patient is alert and oriented x3. Cranial nerves II through XII are grossly intact. Motor and sensory are also intact. Normal speech, volume and content. Symmetrical smile. MUSCULOSKELETAL: Normal extremities with adequate strength and full range of motion. There is no palpable area of tenderness on the shoulder but patient has pain she states internally with any movement of the shoulder but she is able to go through full range of motion. No lower extremity swelling or edema. No calf tenderness. LYMPHATICS: No significant lymphadenopathy is noted PSYCHIATRIC: Normal psychiatric evaluation. Limitations: no limitations Course Vital Signs 06/08/23 06/08/23 15:27 18:00 Temperature 98.0 F Pulse Rate 86 72 Respiratory 19 18 Rate Blood Pressure 103/66 132/75 O2 Sat by Pulse 97 99 Oximetry Medical Decision Making - Medical Decision Making EKG was interpreted by myself shows a sinus rhythm at 85 bpm ME interval 276 1 QT Interval 33 QTC Is 425 per Patient's EKG Shows No ST Segment Elevation or Depression Was pt. sent in by a medical professional or institution (, PA, ROUTE AIDE, urgent care, hospital, or intermediate...) When possible be specific @ -No Did you speak to anyone other than the patient for history (EMS, parent, family, police, friend...)? What history was obtained from this source @ -No Did you review nursing and triage notes (agree or disagree)? Why? @ -I reviewed and agree with nursing and triage notes Were old charts reviewed (outside hosp., previous admission, EMS record, old EKG, old radiological studies, urgent care reports/EKG's, intermediate records)? Report findings @ -No old charts were reviewed Differential Diagnosis (chest pain, altered mental status, abdominal pain women, abdominal pain men, vaginal bleeding, weakness, fever, dyspnea, syncope, headache, dizziness, GI bleed, back pain, seizure, CVA, palpatations, mental health, musculoskeletal)? @ -Differential Chest Pain: Stable Angina, Unstable Angina, STEMI, NSTEMI Aortic Dissection, Pneumothorax, Musculoskeletal, Esophageal Spasm GERD, Cholecystitis, Pancreatitis, Zoster, this is not meant to be an all-inclusive list. EKG interpreted by me (3pts min.). @ -As above X-rays interpreted by me (1pt min.). @ -EKG shows no acute abnormality CT interpreted by me (1pt min.). @ -None done U/S interpreted by me (1pt. min.). @ -None done What testing was considered but not performed or refused? (CT, X-rays, U/S, labs)? Why? @ -None What meds were considered but not given or refused? Why? @ -None Did you discuss the management of the patient with other professionals (professionals i.e. , PA, ROUTE AIDE, lab, RT, psych nurse, social work assistant, carbon printer, teacher, uniform patrol police officer, case aide)? Give summary @ -I spoke with the [facility] hospitalist and they agreed to admit the patient Was smoking cessation discussed for >3mins.? @ -No Was critical care preformed (if so, how long)? @ -No Were there social determinants of health that impacted care today? How? (Homelessness, low income, unemployed, alcoholism, drug addiction, transportatio n, low edu. Level, literacy, decrease access to med. care, correction, rehab)? @ -No Was there de-escalation of care discussed even if they declined (Discuss DNR or withdrawal of care, Hospice)? DNR status @ -No What co-morbidities impacted this encounter? (DM, HTN, Smoking, COPD, CAD, Cancer, CVA, ARF, Chemo, Hep., AIDS, mental health diagnosis, sleep apnea, morbid obesity)? @ -None Was patient admitted / discharged? Hospital course, mention meds given and route, prescriptions, significant lab abnormalities, going to OR and other pertinent info. @ -Patient had chest pain throughout her ED course it was feeling better than when she came in initially. I spoke with the [facility] hospitalist after all the labs came back negative x-ray negative. They agreed to admit the patient admitted the patient I consulted cardiology Undiagnosed new problem with uncertain prognosis? @ -No Drug Therapy requiring intensive monitoring for toxicity (Heparin, Nitro, Insulin, Cardizem)? @ -No Were any procedures done? @ -No Diagnosis/symptom? @ -Chest pain Acute, or Chronic, or Acute on Chronic? @ -Acute Uncomplicated (without systemic symptoms) or Complicated (systemic symptoms)? @ -Complicated Side effects of treatment? @ -No Exacerbation, Progression, or Severe Exacerbation? @ -No Poses a threat to life or bodily function? How? (Chest pain, [place], [place], pneumonia, PE, COPD, DKA, ARF, appy, cholecystitis, CVA, Diverticulitis, Homicidal, Suic idal, threat to staff... and all critical care pts) @ -Yes this could lead to poor perfusion and end organ dysfunction - Lab Data Result diagrams: 06/08/23 16:00 06/08/23 16:00 Lab Results 06/08/23 06/08/23 06/08/23 Range/Units 16:00 16:00 16:00 WBC 8.9 (3.8-10.6) k/uL RBC 4.49 (3.80-5.40) m/uL Hgb 13.2 (11.4-16.0) gm/dL Hct 39.6 (34.0-46.0) % MCV 88.2 (80.0-100.0) fL MCH 29.4 (25.0-35.0) pg MCHC 33.3 (31.0-37.0) g/dL RDW 13.4 (11.5-15.5) % Plt Count 235 (150-450) k/uL MPV 8.6 Neutrophils % 61 % Lymphocytes % 32 % Monocytes % 5 % Eosinophils % 1 % Basophils % 0 % Neutrophils # 5.4 (1.3-7.7) k/uL Lymphocytes # 2.8 (1.0-4.8) k/uL Monocytes # 0.5 (0-1.0) k/uL Eosinophils # 0.1 (0-0.7) k/uL Basophils # 0.0 (0-0.2) k/uL PT 10.3 (9.0-12.0) sec INR 1.0 (<1.2) APTT 23.4 (22.0-30.0) sec Sodium 138 (137-145) mmol/L Potassium 4.1 (3.5-5.1) mmol/L Chloride 106 (98-107) mmol/L Carbon Dioxide 26 (22-30) mmol/L Anion Gap 6 mmol/L BUN 12 (7-17) mg/dL Creatinine 0.70 (0.52-1.04) mg/dL Est GFR (CKD-EPI)AfAm >90 (>60 ml/min/1.73 sqM) Est GFR (CKD-EPI)NonAf >90 (>60 ml/min/1.73 sqM) Glucose 88 (74-99) mg/dL Calcium 8.9 (8.4-10.2) mg/dL Magnesium 1.8 (1.6-2.3) mg/dL Total Bilirubin 0.4 (0.2-1.3) mg/dL AST 20 (14-36) U/L ALT 18 (4-34) U/L Alkaline Phosphatase 87 (38-126) U/L Troponin I (0.000-0.034) ng/mL Total Protein 6.6 (6.3-8.2) g/dL Albumin 3.8 (3.5-5.0) g/dL Lipase 74 (23-300) U/L 06/08/23 Range/Units 16:00 WBC (3.8-10.6) k/uL RBC (3.80-5.40) m/uL Hgb (11.4-16.0) gm/dL Hct (34.0-46.0) % MCV (80.0-100.0) fL MCH (25.0-35.0) pg MCHC (31.0-37.0) g/dL RDW (11.5-15.5) % Plt Count (150-450) k/uL MPV Neutrophils % % Lymphocytes % % Monocytes % % Eosinophils % % Basophils % % Neutrophils # (1.3-7.7) k/uL Lymphocytes # (1.0-4.8) k/uL Monocytes # (0-1.0) k/uL Eosinophils # (0-0.7) k/uL Basophils # (0-0.2) k/uL PT (9.0-12.0) sec INR (<1.2) APTT (22.0-30.0) sec Sodium (137-145) mmol/L Potassium (3.5-5.1) mmol/L Chloride (98-107) mmol/L Carbon Dioxide (22-30) mmol/L Anion Gap mmol/L BUN (7-17) mg/dL Creatinine (0.52-1.04) mg/dL Est GFR (CKD-EPI)AfAm (>60 ml/min/1.73 sqM) Est GFR (CKD-EPI)NonAf (>60 ml/min/1.73 sqM) Glucose (74-99) mg/dL Calcium (8.4-10.2) mg/dL Magnesium (1.6-2.3) mg/dL Total Bilirubin (0.2-1.3) mg/dL AST (14-36) U/L ALT (4-34) U/L Alkaline Phosphatase (38-126) U/L Troponin I <0.012 (0.000-0.034) ng/mL Total Protein (6.3-8.2) g/dL Albumin (3.5-5.0) g/dL Lipase (23-300) U/L Disposition Clinical Impression: Chest pain Disposition: ADMITTED IP TO THIS [facility] Referrals: Jasson Jaimes MD [Primary Care Provider] - 1-2 days Time of Disposition: 19:06
[2023-06-08 16:20] LABS: Basophils % (A) 0 %; Eosinophils # (A) 0.1 k/uL (0-0.7); Eosinophils % (A) 1 %; HCT 39.6 % (34.0-46.0); HGB 13.2 gm/dL (11.4-16.0); Lymphocytes # (A) 2.8 k/uL (1.0-4.8); Lymphocytes % (A) 32 %; MCH 29.4 pg (25.0-35.0); MCHC 33.3 g/dL (31.0-37.0); MCV 88.2 fL (80.0-100.0); Mean Platelet Volume 8.6; Monocytes # (A) 0.5 k/uL (0-1.0); Monocytes % (A) 5 %; Neutrophils # (A) 5.4 k/uL (1.3-7.7); Neutrophils % (A) 61 %; Platelet Count 235 k/uL (150-450); RBC 4.49 m/uL (3.80-5.40); RDW 13.4 % (11.5-15.5); WBC 8.9 k/uL (3.8-10.6)
--- NOTE | 2023-06-08 16:22 | XR ---
EXAMINATION TYPE: XR chest 2V DATE OF EXAM: 06/08/2023 COMPARISON: NONE HISTORY: Shortness of breath TECHNIQUE: Frontal and lateral views of the chest are obtained. FINDINGS: Scattered senescent parenchymal changes noted. Hyperinflation compatible with COPD. No evidence for infiltrate. No evidence for atelectasis. Heart size is stable. Mediastinal structures are stable and grossly unremarkable. No evidence for hilar prominence. Degenerative changes dorsal spine. IMPRESSION: 1. No evidence for acute pulmonary disease.
[2023-06-08 16:28] LABS: Partial Thromboplastin Time 23.4 sec (22.0-30.0); Prothrombin Time 10.3 sec (9.0-12.0)
[2023-06-08 16:29] LABS: ALT 18 U/L (4-34); AST 20 U/L (14-36); African American GFR (CKD) >90 (>60 ml/min/1.73 sqM); Albumin 3.8 g/dL (3.5-5.0); Alkaline Phosphatase 87 U/L (38-126); Anion Gap 6 mmol/L; Blood Urea Nitrogen 12 mg/dL (7-17); Calcium 8.9 mg/dL (8.4-10.2); Carbon Dioxide 26 mmol/L (22-30); Chloride 106 mmol/L (98-107); Glucose 88 mg/dL (74-99); Lipase 74 U/L (23-300); Magnesium 1.8 mg/dL (1.6-2.3); Non-African American GFR(CKD) >90 (>60 ml/min/1.73 sqM); Potassium 4.1 mmol/L (3.5-5.1); Sodium 138 mmol/L (137-145); Total Bilirubin 0.4 mg/dL (0.2-1.3); Total Protein 6.6 g/dL (6.3-8.2)
[2023-06-08] MEDS ORDERED: NITROGLYCERIN SL TABS 0.4 MG TAB SUBLINGUAL PRN (19:06)
[2023-06-08] MEDS ORDERED: ACETAMINOPHEN TAB 325 MG TAB PO PRN (21:09)
[2023-06-09] MEDS: NITROGLYCERIN OINT 1 INCH/GM PACKET TOPICAL SCH ×2 (00:07→05:49)
[2023-06-09] MEDS ORDERED: ASPIRIN 325 MG TAB PO SCH (09:00)
[2023-06-09] MEDS ORDERED: ASPIRIN 81 MG PO SCH (09:00)
[2023-06-09 09:37] LABS: Chol/HDL Ratio 4.07 Ratio; LDL Cholesterol,Calculated 104.3 mg/dL (0.0-131.0)
--- NOTE | 2023-06-09 11:25 | P.HPIM ---
History of Present Illness H&P Date: 06/09/23 History of present illness; patient is a 58-year-old lady with no significant pa st medical history presented to the ER because of chest pain. Patient stated that for the last few days she has been having left shoulder pain that has been bothering her. This morning she noticed that she was having chest pain that was central in location, constant, achy in nature, nonradiating, no aggravating or relieving factors associated with this chest pain. Patient was complaining of nausea during this time of chest pain. Denies any PALPITATIONS. Denies orthopnea or PND. Because of this chest pain, patient came to the ER Initial lab work done in the ER showed WBC 8.9, hemoglobin 13.2, platelet count 235, sodium 138, potassium 4.1, BUN 12, creatinine 0.70, troponin 0.012 EKG done in the ER showed sinus rhythm, ventricular rate of 85 bpm, no acute segment depression or elevation seen Chest x-ray negative for acute cardiopulmonary process REVIEW OF SYSTEMS: CONSTITUTIONAL: No fever, no malaise, no fatigue. HEENT: No recent visual problems or hearing problems. Denied any sore throat. CARDIOVASCULAR: As mentioned in HPI PULMONARY: No shortness of breath, no cough, no hemoptysis. GASTROINTESTINAL: No diarrhea, no abdominal pain. NEUROLOGICAL: No headaches, no weakness, no numbness. HEMATOLOGICAL: Denies any bleeding or petechiae. GENITOURINARY: Denies any burning micturition, frequency, or urgency. MUSCULOSKELETAL/RHEUMATOLOGICAL: Denies any joint pain, swelling, or any muscle pain. ENDOCRINE: Denies any polyuria or polydipsia. The rest of the 14-point review of systems is negative. PHYSICAL EXAMINATION: GENERAL: The patient is alert and oriented x3, not in any acute distress. Well developed, well nourished. HEENT: Pupils are round and equally reacting to light. EOMI. No scleral icterus. No conjunctival pallor. Normocephalic, atraumatic. No pharyngeal erythema. No thyromegaly. CARDIOVASCULAR: S1 and S2 present. No murmurs, rubs, or gallops. PULMONARY: Chest is clear to auscultation, no wheezing or crackles. ABDOMEN: Soft, nontender, nondistended, normoactive bowel sounds. No palpable organomegaly. MUSCULOSKELETAL: No joint swelling or deformity. EXTREMITIES: No cyanosis, clubbing, or pedal edema. NEUROLOGICAL: Gross neurological examination did not reveal any focal deficits. SKIN: No rashes. Assessment and plan Chest pain Left shoulder pain Monitor vital signs Monitor CBC Monitor CMP Continue telemetry monitoring Serial troponins Serial EKGs Ordered d-dimer Ordered lipid panel Consult cardiology Ordered left x-ray shoulder Labs and medication were reviewed.. Continue same treatment. Continue with symptomatic treatment. Resume home medication. Monitor labs and vitals. DVT and GI prophylaxis. Further recommendations as per clinical course of the patient Past Medical History Past Medical History: Osteoarthritis (OA), Skin Disorder Additional Past Medical History / Comment(s): hx migraines, hx heart murmer, palpitations with stress, IBS, seborrheic dermatitis, premature age spots History of Any Multi-Drug Resistant Organisms: None Reported Past Surgical History: Joint Replacement, Tonsillectomy Additional Past Surgical History / Comment(s): rt knee replacement Past Anesthesia/Blood Transfusion Reactions: No Reported Reaction Past Psychological History: Anxiety Smoking Status: Current every day smoker Past Alcohol Use History: None Reported Past Drug Use History: None Reported - Past Family History Mother Family Medical History: Cancer, Deep Vein Thrombosis (DVT) Medications and Allergies Home Medications Medication Instructions Recorded Confirmed Type Ibuprofen [Motrin] 800 mg PO TID-W/MEALS PRN 06/08/23 06/08/23 History Allergies Allergy/AdvReac Type Severity Reaction Status Date / Time nickel Allergy Rash/Hives/ Verified 06/08/23 16:31 itching gluten AdvReac Nausea & Verified 06/08/23 16:31 Vomiting & Diarrhea lactase [From Dairy Aid] AdvReac Nausea & Verified 06/08/23 16:31 Vomiting & Diarrhea Physical Exam Vitals: Vital Signs Temp Pulse Pulse Resp BP BP Pulse Ox 06/09/23 08:00 97.7 F 66 16 138/71 06/09/23 03:58 73 18 118/75 99 06/09/23 00:04 71 16 131/76 94 L 06/08/23 21:15 74 18 140/81 97 06/08/23 18:00 72 18 132/75 99 06/08/23 15:27 98.0 F 86 19 103/66 97 Intake and Output 06/08/23 06/09/23 06/09/23 22:59 06:59 14:59 Other: Weight 68.039 kg Results CBC & Chem 7: 06/08/23 16:00 06/08/23 16:00
--- NOTE | 2023-06-09 11:26 | P.DS ---
Providers Date of admission: 06/08/23 19:06 Expected date of discharge: 06/09/23 Attending physician: Marilyn Herrera Consults: 06/08/23 19:06 Consult Physician Urgent Consulting Provider: [facility] Consult Reason/Comments: Chest pain Do you want consulting provider notified?: Yes Primary care physician: Jasson Jaimes [facility] Course: Discharge diagnoses; Chest pain Left shoulder pain Hospital course; patient is a 58-year-old lady with no significant past medical history presented to the ER because of chest pain. Patient stated that for the last few days she has been having left shoulder pain that has been bothering her. This morning she noticed that she was having chest pain that was central in location, constant, achy in nature, nonradiating, no aggravating or relieving factors associated with this chest pain. Patient was complaining of nausea during this time of chest pain. Denies any PALPITATIONS. Denies orthopnea or PND. Because of this chest pain, patient came to the ER Initial lab work done in the ER showed WBC 8.9, hemoglobin 13.2, platelet count 235, sodium 138, potassium 4.1, BUN 12, creatinine 0.70, troponin 0.012 EKG done in the ER showed sinus rhythm, ventricular rate of 85 bpm, no acute segment depression or elevation seen Chest x-ray negative for acute cardiopulmonary process Patient was seen by cardiology, troponin remained negative, d-dimer was also normal. Cardiology cleared the patient for discharge. PHYSICAL EXAMINATION: GENERAL: The patient is alert and oriented x3, not in any acute distress. Well developed, well nourished. HEENT: Pupils are round and equally reacting to light. EOMI. No scleral icterus. No conjunctival pallor. Normocephalic, atraumatic. No pharyngeal erythema. No thyromegaly. CARDIOVASCULAR: S1 and S2 present. No murmurs, rubs, or gallops. PULMONARY: Chest is clear to auscultation, no wheezing or crackles. ABDOMEN: Soft, nontender, nondistended, normoactive bowel sounds. No palpable organomegaly. MUSCULOSKELETAL: No joint swelling or deformity. EXTREMITIES: No cyanosis, clubbing, or pedal edema. NEUROLOGICAL: Gross neurological examination did not reveal any focal deficits. SKIN: No rashes. Dictation was produced using [employer] software. please excuse any grammatical, word or spelling errors. Patient Condition at Discharge: Good Plan - Discharge Summary New Discharge Prescriptions: New Aspirin EC [Ecotrin Low Dose] 81 mg PO DAILY #30 tab Continue Ibuprofen [Motrin] 800 mg PO TID-W/MEALS PRN PRN Reason: Pain Discharge Medication List Ibuprofen [Motrin] 800 mg PO TID-W/MEALS PRN 06/08/23 [History] Aspirin EC [Ecotrin Low Dose] 81 mg PO DAILY #30 tab 06/09/23 [Rx] Follow up Appointment(s)/Referral(s): Jasson Jaimes MD [Primary Care Provider] - 1-2 days Yung De La Rosa DO [STAFF PHYSICIAN] - 1 Week Discharge Disposition: HOME SELF-CARE
--- NOTE | 2023-06-09 12:28 | XR ---
EXAMINATION TYPE: XR shoulder complete 3 views LT DATE OF EXAM: 06/09/2023 Comparison: None Clinical History: 58-year-old female Shoulder pain Findings: There is moderate degenerative joint space narrowing and marginal spurring at the AC joint. Subacromi al space is preserved. No acute fracture, subluxation, or dislocation. Impression: Moderate AC joint OA. Mild inferior spurring may contribute to some subacromial impingement. No acute osseous abnormality seen.
[2023-06-09 12:52] VITALS: BP 135/58; PULSE 65; RESP 18; TEMP 98
--- NOTE | 2023-06-09 15:35 | P.CRDCN ---
History of Present Illness Consult date: 06/09/23 Consult reason: chest pain History of present illness: History of present illness: This is a 58-year-old female with no previous cardiac history, patient reports having a stress test a few years ago that was normal. She has a family history of father having an IA in his 40s. We have been asked to evaluate the patient for chest pain. Patient states she developed left shoulder pain she was unable to lift her left arm. Yesterday she noticed she was working that her pain was increasing and getting more severe as time went on. At that point she also has slight pain in her chest in the middle of the heart. Should she looked this up on the Internet and thought it was related to her heart but she didn't think it worse and so she waited until the end of her shift. She went to the clinic after work and told him about her pain, she was then instructed to go into the emergency center for further evaluation. She denies having any shortness of breath, no dyspnea on exertion. Chest pain has resolved but she continues to have significant left shoulder pain as well as limited range of motion. Patient is seen today in the emergency center waiting for a bed on the cardiac stepdown unit EKG sinus rhythm with no acute changes Chest x-ray: No acute process CBC and CMP within normal limits, troponin negative 3 Home cardiac medications: None Review Of Systems: At the time of my evaluation: Constitutional: No fever, no chills. No weakness, fatigue or lethargy. EENT: No headache. No dizziness. Lungs: No shortness of breath, cough, no sputum production. No wheezing. Cardiovascular: No chest pain, no lower extremity edema. No palpitations. No paroxysmal nocturnal dyspnea. No orthopnea. No lightheadedness or dizziness. No syncopal episodes. Abdominal: No abdominal pain. No nausea, vomiting. No diarrhea. Musculoskeletal: No myalgias. No muscle weakness, no frequent falls. Left shoulder pain. Neurologic: No aphasia. No facial droop. No change in mentation. Physical examination: Gen: This is a 58-year-old female. She is sitting in a chair and appears to be comfortable. VS: reviewed HEENT: Head is atraumatic, normocephalic. Pupils equal, round. Sclerae is anicteric. NECK: Supple. No JVD. . LUNGS: Clear to auscultation. No wheezes or rhonchi. No intercostal retractions. HEART: Regular rate and rhythm. No murmur. ABDOMEN: Soft No tenderness. EXTREMITIES: No pedal edema. No calf tenderness. Limited range of motion to the left shoulder. NEUROLOGICAL: Patient is awake, alert and oriented x3. Assessment: Left shoulder pain Chest pain, acute coronary syndrome ruled out Plan: Obtain 2-D echocardiogram and Doppler study to assess cardiac structure and function Patient is cleared for discharge and may follow up in the office for possible stress testing. Smoking cessation was discussed with the patient. Thank you kindly for this consultation. Nurse practitioner note has been reviewed, I agree with documented findings and plan of care. Patient was seen and examined. Past Medical History Past Medical History: Osteoarthritis (OA), Skin Disorder Additional Past Medical History / Comment(s): hx migraines, hx heart murmer, palpitations with stress, IBS, seborrheic dermatitis, premature age spots History of Any Multi-Drug Resistant Organisms: None Reported Past Surgical History: Joint Replacement, Tonsillectomy Additional Past Surgical History / Comment(s): rt knee replacement Past Anesthesia/Blood Transfusion Reactions: No Reported Reaction Past Psychological History: Anxiety Smoking Status: Current every day smoker Past Alcohol Use History: None Reported Past Drug Use History: None Reported - Past Family History Mother Family Medical History: Cancer, Deep Vein Thrombosis (DVT) Medications and Allergies Home Medications Medication Instructions Recorded Confirmed Type Ibuprofen [Motrin] 800 mg PO TID-W/MEALS PRN 06/08/23 06/08/23 History Aspirin EC [Ecotrin Low Dose] 81 mg PO DAILY #30 tab 06/09/23 Rx Allergies Allergy/AdvReac Type Severity Reaction Status Date / Time nickel Allergy Rash/Hives/ Verified 06/08/23 16:31 itching gluten AdvReac Nausea & Verified 06/08/23 16:31 Vomiting & Diarrhea lactase [From Dairy Aid] AdvReac Nausea & Verified 06/08/23 16:31 Vomiting & Diarrhea Physical Exam Vitals: Vital Signs Temp Pulse Pulse Resp BP BP Pulse Ox 06/09/23 08:00 97.7 F 66 16 138/71 06/09/23 03:58 73 18 118/75 99 06/09/23 00:04 71 16 131/76 94 L 06/08/23 21:15 74 18 140/81 97 06/08/23 18:00 72 18 132/75 99 06/08/23 15:27 98.0 F 86 19 103/66 97 Intake and Output 06/08/23 06/09/23 06/09/23 22:59 06:59 14:59 Other: Weight 68.039 kg Results 06/08/23 16:00 06/08/23 16:00 Cardiac Enzymes 06/08/23 06/08/23 06/08/23 Range/Units 16:00 16:00 20:07 AST 20 (14-36) U/L Troponin I <0.012 <0.012 (0.000-0.034) ng/mL 06/08/23 Range/Units 23:34 AST (14-36) U/L Troponin I <0.012 (0.000-0.034) ng/mL Coagulation 06/08/23 Range/Units 16:00 PT 10.3 (9.0-12.0) sec APTT 23.4 (22.0-30.0) sec CBC 06/08/23 Range/Units 16:00 WBC 8.9 (3.8-10.6) k/uL RBC 4.49 (3.80-5.40) m/uL Hgb 13.2 (11.4-16.0) gm/dL Hct 39.6 (34.0-46.0) % Plt Count 235 (150-450) k/uL Comprehensive Metabolic Panel 06/08/23 Range/Units 16:00 Sodium 138 (137-145) mmol/L Potassium 4.1 (3.5-5.1) mmol/L Chloride 106 (98-107) mmol/L Carbon Dioxide 26 (22-30) mmol/L BUN 12 (7-17) mg/dL Creatinine 0.70 (0.52-1.04) mg/dL Glucose 88 (74-99) mg/dL Calcium 8.9 (8.4-10.2) mg/dL AST 20 (14-36) U/L ALT 18 (4-34) U/L Alkaline Phosphatase 87 (38-126) U/L Total Protein 6.6 (6.3-8.2) g/dL Albumin 3.8 (3.5-5.0) g/dL Current Medications Generic Name Dose Route Start Last Admin Trade Name Freq PRN Reason Stop Dose Admin Acetaminophen 650 mg 07/17/23 21:09 06/08/23 21:15 Acetaminophen Tab 325 Mg Tab PO 650 mg Q4HR PRN Administration Fever and/ or Pain Aspirin 325 mg 06/09/23 09:00 Aspirin 325 Mg Tab PO DAILY ISAI Nitroglycerin 0.4 mg 06/08/23 19:06 Nitroglycerin Sl Tabs 0.4 Mg Tab SUBLINGUAL Q5M PRN Chest Pain Nitroglycerin 1 inch 06/09/23 00:00 06/09/23 05:49 Nitroglycerin Oint 1 Inch/Gm Packet TOPICAL Not Given Q6HR ISAI Intake and Output 06/08/23 06/09/23 06/09/23 22:59 06:59 14:59 Other: Weight 68.039 kg 06/08/23 16:00 06/08/23 16:00
--- NOTE | 2023-06-10 08:31 | CA ---
Transthoracic Echo Report Name: Carrie Weber Age: 58 Gender: F : 1965 Exam Date: 06/09/2023 09:33 Exam Location: [facility] Ht (in): 63 Wt (lb): 150 Ordering Physician: Abby lFores Attending/Referring Phys: [id number], Sandra Armature [employer] Keren Sierra RDCS Procedure CPT: Indications: LVF Cardiac Hx: Sinus rhythm Technical Quality: good-quality Contrast 1: Total Dose (mL): Contrast 2: Total Dose (mL): MEASUREMENTS (Male / Female) Normal Values 2D ECHO LV Diastolic Diameter PLAX 4.0 cm 4.2 - 5.9 / 3.9 - 5.3 cm LV Systolic Diameter PLAX 2.8 cm IVS Diastolic Thickness 1.1 cm 0.6 - 1.0 / 0.6 - 0.9 cm LVPW Diastolic Thickness 1.1 cm 0.6 - 1.0 / 0.6 - 0.9 cm LV Relative Wall Thickness 0.6 RV Internal Dim ED PLAX 2.6 cm LA Volume 51.5 cm??? 18 - 58 / 22 - 52 cm??? M-MODE Aortic Root Diameter MM 2.8 cm LA Systolic Diameter MM 3.5 cm LA Ao Ratio MM 1.2 AV Cusp Separation MM 2.1 cm DOPPLER AV Peak Velocity 129.4 cm/s AV Peak Gradient 6.7 mmHg AV Mean Velocity 95.6 cm/s AV Mean Gradient 4.1 mmHg AV Velocity Time Integral 31.3 cm LVOT Peak Velocity 83.9 cm/s LVOT Peak Gradient 2.8 mmHg LVOT Velocity Time Integral 20.7 cm MV Area PHT 2.9 cm??? Mitral E Point Velocity 79.8 cm/s Mitral A Point Velocity 98.0 cm/s Mitral E to A Ratio 0.8 MV Deceleration Time 262.9 ms MV E' Velocity 8.3 cm/s Mitral E to MV E' Ratio 9.6 TR Peak Velocity 131.5 cm/s TR Peak Gradient 6.9 mmHg Right Ventricular Systolic Press 11.9 mmHg FINDINGS Left Ventricle Mildly increased left ventricular wall thickness. Left ventricular cavity size normal. Normal left ventricular systolic function with no obvious regional wall motion abnormalities. Left ventricular ejection fraction is estimated at 55-60 %. Normal left ventricular diastolic filling pattern. Right Ventricle Normal right ventricular size and function. Right ventricular systolic pressure within normal limits. Right Atrium Normal right atrial size. Left Atrium Normal left atrial size. Mitral Valve Structurally normal mitral valve. No mitral stenosis, regurgitation or prolapse. Aortic Valve Trileaflet aortic valve. No aortic valve stenosis or regurgitation. Tricuspid Valve Structurally normal tricuspid valve. Trace to mild tricuspid regurgitation. Pulmonic Valve Structurally normal pulmonic valve. Trace pulmonic regurgitation. Pericardium No pericardial effusion. Aorta Normal size aortic root and proximal ascending aorta. CONCLUSIONS Left ventricular ejection fraction is estimated at 55-60 %. Mildly increased left ventricular wall thickness. Normal left ventricular diastolic filling pattern. No obvious regional wall motion abnormalities. No significant valvular heart disease No significant chamber size abnormality No prior echo to compare with Previewed by: Dr Kleber Pereyra (Electronically Signed) Final Date: 09 June 2023 15:04
== END 2023-06-09 12:47 | disposition home or self-care (01) | DRG 556 ==
LOC: EC 15:19 → 3SCARD 19:06
PROVIDERS: ADMIT Hospitalist; ATTEND Hospitalist
DX: M25.512 Pain in left shoulder (principal); K90.41 Non-celiac gluten sensitivity; R07.89 Other chest pain; F17.210 Nicotine dependence, cigarettes, uncomplicated; K58.9 Irritable bowel syndrome, unspecified; L21.9 Seborrheic dermatitis, unspecified; I07.1 Rheumatic tricuspid insufficiency; G43.909 Migraine, unspecified, not intractable, without status migrainosus; M19.90 Unspecified osteoarthritis, unspecified site; F41.9 Anxiety disorder, unspecified; Z79.82 Long term (current) use of aspirin; Z82.49 Family history of ischemic heart disease and other diseases of the circulatory system; Z96.651 Presence of right artificial knee joint; Z88.8 Allergy status to other drugs, medicaments and biological substances
CPT/HCPCS: 36415; 71046; 80053; 80061; 83690; 83735; 84484; 85025; 85379; 85610; 85730; 93005; 93306; 99285